=== PATIENT | male | born 1970 | race Caucasian/White ===

== ENCOUNTER 2022-09-07 06:10 | Day surgery (SDC) | payer BC ==
[2022-09-07] MEDS ORDERED: Sodium Chloride 0.9% 10 ML Syringe FLUSH PRN (06:15)
[2022-09-07] MEDS ORDERED: Lactated Ringers 1,000 ML IV SCH (06:15)
[2022-09-07] MEDS ORDERED: Propofol 200 MG/20 ML SDV IV ONE (08:00)
[2022-09-07] MEDS ORDERED: Midazolam 1 MG/ML 2 ML SDV IV ONE (13:45)
== END 2022-09-07 08:55 | disposition home or self-care (01) ==
LOC: FB.SDS 06:10
PROVIDERS: ATTEND Surgery
DX: D12.6 Benign neoplasm of colon, unspecified (principal); K57.30 Diverticulosis of large intestine without perforation or abscess without bleeding; K21.9 Gastro-esophageal reflux disease without esophagitis; E78.2 Mixed hyperlipidemia; R73.03 Prediabetes; F17.210 Nicotine dependence, cigarettes, uncomplicated; Z79.899 Other long term (current) drug therapy; Z88.5 Allergy status to narcotic agent; Z88.0 Allergy status to penicillin; Z98.890 Other specified postprocedural states; Z79.84 Long term (current) use of oral hypoglycemic drugs
CPT/HCPCS: 45385; 88305; J2250; J2704; J3490; J7120